=== PATIENT | male | born 2000 | race Caucasian/White ===

== ENCOUNTER 2020-01-31 17:04 | Emergency (ER) | payer BC ==
[2020-01-31 17:15] VITALS: BP 141/73; PULSE 108; BMI 25.7
[2020-01-31 17:17] VITALS: TEMP 97.2
[2020-01-31] MEDS ORDERED: OXYMETAZOLINE 0.05% NASAL SOLUTION 15 ML BOTTLE NS ONE (18:53)
[2020-01-31] MEDS ORDERED: IBUPROFEN 400 MG TABLET (FP) PO ONE ×2 (19:34→19:36)
== END 2020-01-31 20:24 | disposition home or self-care (01) ==
LOC: JER 17:04
DX: S02.2XXA Fracture of nasal bones, initial encounter for closed fracture (principal)
CPT/HCPCS: 70150-TC-FY; 70486-TC; 99284-25